=== PATIENT | female | born 1985 | race Native Hawaiian/Other Pacific Islander ===

== ENCOUNTER 2020-11-30 18:45 | Emergency (ER) | payer OTHER ==
[~2020-11-30] VITALS: Ht 162.6 cm; Wt 60.8 kg
[2020-11-30] MEDS ORDERED: ZYPREXA ZYDI10 MG PO (19:18)
[2020-11-30 19:34] LABS: PLATELET COUNT 373 K/uL (152-353)
[2020-11-30 19:58] LABS: POTASSIUM 3.9 mmol/L (3.6-5.2); SODIUM 139 mmol/L (136-145)
[2020-12-01 06:55] VITALS: BP 118/70; TEMP 98.2
== END 2020-12-01 09:10 | disposition other institution (70) ==
LOC: ED 18:45
PROVIDERS: Hospitalist
DX: F32.89 Other specified depressive episodes (principal); R45.851 Suicidal ideations; Z11.52 Encounter for screening for COVID-19
CPT/HCPCS: 36415; 80053; 80307; 80320; 80329; 81000; 81025; 85027; 87635; 93005; 96372; 99285; J2060; U0003

== ENCOUNTER 2021-04-02 00:36 | Emergency (ER) | payer OTHER ==
[~2021-04-02] VITALS: Ht 162.6 cm; Wt 63.0 kg
[~2021-04-02 00:36] MED LIST: ZYPREXA ZYDI10 MG PO
[2021-04-02 01:50] LABS: PLATELET COUNT 278 K/uL (152-353)
[2021-04-02 01:57] LABS: POTASSIUM 4.3 mmol/L (3.6-5.2)
[2021-04-02 20:00] VITALS: BP 108/70
== END 2021-04-03 12:50 | disposition home or self-care (01) ==
LOC: ED 00:36
PROVIDERS: Emergency Medicine Emergency Medical Services
DX: F32.9 Major depressive disorder, single episode, unspecified (principal); R44.0 Auditory hallucinations; R45.851 Suicidal ideations; Z20.822 Contact with and (suspected) exposure to COVID-19
CPT/HCPCS: 36415; 80053; 80307; 80320; 80329; 81025; 85027; 87635; 93005; 96372; 99285; J1885; U0003